=== PATIENT | female | born 1990 | race Caucasian/White ===

== ENCOUNTER 2018-03-18 17:22 | Emergency (ER) | payer OTHER ==
--- NOTE | 2018-03-18 17:33 | EDPHY ---
H & P Time Seen by Provider: 03/18/18 17:30 HPI/ROS: Chief complaint. Elbow injury HPI. 27-year-old female presents with left elbow injury. She was in [facility] last night for work slipped on the ice landing directly on her left elbow. It is swollen. Decreased range of motion. It is hard to supinate pronator hand. She has mild swelling to her hand but no injury to the wrist or shoulder. Denies any other injury. Did not strike her head or lose consciousness. At age 4 and half she had what sounds to be an elbow fracture and dislocation and it was treated surgically with pins. Metal has been removed. She has not had subsequent problem with her elbow until today. ROS Constitutional. no fever/chills, no weakness Eyes. no problems with vision ENT. no sore throat, no nasal drainage Cardiovascular. no chest pain Respiratory. no shortness of breath, no cough Abdominal. no abdominal pain, no nausea/vomiting, no diarrhea . no problems urinating MS. Left elbow pain and swelling Skin. no rash Lymph. no swollen glands Neuro. no headache, no dizziness, no difficulty walking or with speech Past Medical/Surgical History: Previous ORIF left elbow Social History: Single, non smoker, no alcohol Smoking Status: Never smoked Physical Exam: General Appearance: Alert pleasant well-developed female moderate distress vital signs stable Eyes: Pupils equal and round no pallor or injection. ENT, Mouth: Mucous membranes are moist. Respiratory: There are no retractions, lungs are clear to auscultation. Cardiovascular: Regular rate and rhythm. Gastrointestinal: Abdomen is soft and nontender, no masses, bowel sounds normal. Neurological: Awake and alert, sensory and motor exams grossly normal. Skin: Warm and dry, no rashes. Musculoskeletal: Neck is supple nontender. Extremities left elbow is diffusely swollen. There is posterior ecchymosis. No obvious deformity. Decreased supination pronation. No shoulder wrist discomfort. Distal motor vascular sensitivity is intact Psychiatric: Patient is oriented X 3, there is no agitation. Constitutional: Initial Vital Signs Temperature (C) 37 C 03/18/18 17:26 Heart Rate 81 03/18/18 17:26 Respiratory Rate 17 03/18/18 17:26 Blood Pressure 138/97 H 03/18/18 17:26 O2 Sat (%) 95 03/18/18 17:26 O2 Delivery Mode Room Air Allergies/Adverse Reactions: Sulfa (Sulfonamide Antibiotics) Allergy (Verified 03/18/18 17:25) Home Medications: Medication Instructions Recorded oxyCODONE/APAP 5/325 [Percocet 1 tab PO Q4-6PRN PRN #10 tab 03/18/18 5/325] Medical Decision Making - Diagnostics Imaging Results: Imaging Impressions Elbow X-Ray 03/18/18 17:33 Impression: Negative for fracture. Results discussed with Dr. Aldana. X-ray reviewed by me and discussed with Dr. Uribe shows posterior fat pad but no obvious fracture or dislocation Procedures: Percocet and Zofran orally Posterior splint is applied. Post splint application shows good anatomic position and distal motor vascular sensitivity to be intact ED Course/Re-evaluation: Re-evaluation 6:15 p.m. Patient and I discussed imaging study results, treatment plan including criteria for return and importance of follow-up and further evaluation. She expresses understanding and agreement Differential Diagnosis: I considered fracture, dislocation, contusion, sprain. Patient has positive posterior fat pad so I suspect that there is an occult fracture - Data Points Medications Given: Discontinued Medications Ondansetron HCl (Zofran Odt) 4 mg PO EDNOW ONE Stop: 03/18/18 17:41 Last Admin: 03/18/18 17:48 Dose: 4 mg Oxycodone/Acetaminophen (Percocet 5/325) 1 tab PO EDNOW ONE Stop: 03/18/18 17:41 Last Admin: 03/18/18 17:48 Dose: 1 tab Departure - Departure Disposition: Home, Routine, Self-Care Clinical Impression: Left elbow contusion Qualifiers: Encounter type: initial encounter Qualified Code(s): S50.02XA - Contusion of left elbow, initial encounter Condition: Good Instructions: Contusion in Adults (ED) Additional Instructions: splint and sling until see orthopedist later this week. Ibuprofen 600 mg every 6 hr. Percocet in addition if needed for pain. Return for worsening symptoms. Call orthopedist Tuesday morning for follow-up appointment Referrals: Faye Butt MD [Primary Care Provider] - As per Instructions Kirk Roth MD [Medical Doctor] - 5-7 days, call for appt. Prescriptions: oxyCODONE/APAP 5/325 [Percocet 5/325] 1 tab PO Q4-6PRN PRN #10 tab PRN Reason: Pain, Moderate
[2018-03-18] MEDS ORDERED: OXYCODONE/APAP 5/325 TAB PO ONE (17:40)
[2018-03-18] MEDS ORDERED: ONDANSETRON DISINTEGRATING 4 MG TAB PO ONE (17:40)
[2018-03-18 18:31] VITALS: BP 129/71
== END 2018-03-18 18:33 | disposition home or self-care (01) ==
DX: S50.02XA Contusion of left elbow, initial encounter (principal); W00.0XXA Fall on same level due to ice and snow, initial encounter; Y92.89 Other specified places as the place of occurrence of the external cause; Y99.0 Civilian activity done for income or pay; Y93.89 Activity, other specified
CPT/HCPCS: A4565

== ENCOUNTER → 2018-03-29 | Outpatient (CLI) | payer OTHER | LOC: BMCIMAGING 08:54 | PROVIDERS: ATTEND Orthopaedic Surgery | DX: S42.455D Nondisplaced fracture of lateral condyle of left humerus, subsequent encounter for fracture with routine healing (principal) ==

== ENCOUNTER → 2018-04-12 | Outpatient (CLI) | payer OTHER | LOC: BMCIMAGING 08:44 | PROVIDERS: ATTEND Orthopaedic Surgery | DX: S42.455D Nondisplaced fracture of lateral condyle of left humerus, subsequent encounter for fracture with routine healing (principal) ==

== ENCOUNTER → 2018-05-10 | Outpatient (CLI) | payer OTHER | LOC: BMCIMAGING 08:12 | PROVIDERS: ATTEND Orthopaedic Surgery | DX: S42.455D Nondisplaced fracture of lateral condyle of left humerus, subsequent encounter for fracture with routine healing (principal) ==